=== PATIENT | male | born 1990 | race American Indian/Alaskan Native ===

== ENCOUNTER 2019-07-07 08:42 | Emergency (ER) | payer SELFPAY ==
[2019-07-07 08:53] VITALS: BP 94/59
[2019-07-07] MEDS ORDERED: LIDOCAINE-MPF (1%) 10 MG/1 ML VIAL 5 ML INFILTRATI ONE (10:23)
[2019-07-07] MEDS ORDERED: AZITHROMYCIN 250 MG TAB PO ONE (10:23)
--- NOTE | 2019-07-07 10:30 | Emergency Department Report ---
Chief Complaint: Urogenital-Male Stated Complaint: PELVIC PAIN Time Seen by Provider: 07/07/19 10:18 - HPI History of Present Illness: This is a 28-year-old homosexual male who presents to ED complaining of gonorrhea exposure via his partner. Patient states that his partner was tested and treated for gonorrhea 2 days ago. Patient states his partner called him yesterday and was told of diagnosis. Patient states that he only participating in anal sex. He denies fever/chills/nausea vomiting. Patient just admits some rectal pain otherwise no other symptoms - ROS Review of Systems: As as noted in HPI as noted in HPI - Exam Vital Signs: Vital Signs 07/07/19 08:50 Temperature 97.8 F Pulse Rate 70 Respiratory 16 Rate Blood Pressure 94/59 O2 Sat by Pulse 100 Oximetry Physical Exam: GENERAL: Alert and oriented x3, no apparent distress, Normal Gait, atraumatic. SKIN: Warm and dry, No lesions, No ulceration or induration present. MSE screening note: Focused history and physical exam performed. Due to findings the following was ordered: ED Medical Decision Making - Medical Decision Making 28-year-old male presents with STD exposure. ED course: Patient received 250 mg of Rocephin, azithromycin 1 g, According to up-to-date doxycycline is recommended for gonococcal proctitis the patient will be sent home on doxycycline x7 days Discussed with patient possible STD due to exposure. Discussed with patient findings and treatment Discussed prophylaxis treatment patient is to abstain from sex 7-10 days as treatment. Discussed patient partner knowledge and treatment. Discussed the follow-up with the health department for further STD testing. Patient's alert and oriented times 3. Vital signs are normal patient is in no acute discharge. Patient will be discharged home with instructions. ED Disposition for MSE Clinical Impression: Gonococcal proctitis Disposition: [id number] TO HOME OR SELFCARE Is pt being admited?: No Does the pt Need Aspirin: No Condition: Stable Instructions: Gonococcal Urethritis (ED) Prescriptions: Doxycycline Monohydrate 100 mg PO BID #14 capsule Referrals: [facility] [Outside] - 3-5 Days [facility] [Outside] - 3-5 Days [facility] [Outside] - 3-5 Days Forms: Accompanied Note, Work/School Release Form(ED) Time of Disposition: 10:54
== END 2019-07-07 11:08 | disposition home or self-care (01) ==
LOC: ED 08:42
DX: A54.6 Gonococcal infection of anus and rectum (principal)
CPT/HCPCS: 96372; 99282; J0696